=== PATIENT | male | born 1945 | race Caucasian/White ===

== ENCOUNTER 2023-05-15 09:10 | Outpatient (RCR) | payer SELFPAY | END 2023-05-15 23:59 | disposition home or self-care (01) | LOC: RST 09:10 | PROVIDERS: ATTENDING PHYSICIAN Family Medicine | DX: G20.A1 Parkinson's disease without dyskinesia, without mention of fluctuations (principal) ==

== ENCOUNTER 2023-08-28 09:29 | Outpatient (RCR) | payer SELFPAY | END 2023-08-28 23:59 | disposition home or self-care (01) | LOC: RST 09:29 | PROVIDERS: ATTENDING PHYSICIAN Family Medicine | DX: G20.A1 Parkinson's disease without dyskinesia, without mention of fluctuations (principal) ==

== ENCOUNTER 2023-10-30 11:45 | Outpatient (RCR) | payer SELFPAY | END 2023-10-30 23:59 | disposition home or self-care (01) | LOC: RST 11:45 | PROVIDERS: ATTENDING PHYSICIAN Family Medicine | DX: G20.C Parkinsonism, unspecified (principal); R47.1 Dysarthria and anarthria; R49.0 Dysphonia ==

== ENCOUNTER → 2023-11-26 13:27 | Outpatient (REF) | payer MEDICARE, SELFPAY | LOC: RAD 13:27 | PROVIDERS: ATTENDING PHYSICIAN Family Medicine | DX: M25.511 Pain in right shoulder (principal); S46.211A Strain of muscle, fascia and tendon of other parts of biceps, right arm, initial encounter | CPT/HCPCS: 73200 ==

== ENCOUNTER 2024-01-01 12:32 | Outpatient (RCR) | payer SELFPAY | END 2024-01-01 23:59 | disposition home or self-care (01) | LOC: RST 12:32 | PROVIDERS: ATTENDING PHYSICIAN Family Medicine | DX: G20.A1 Parkinson's disease without dyskinesia, without mention of fluctuations (principal); R47.1 Dysarthria and anarthria; R49.0 Dysphonia ==

== ENCOUNTER → 2024-02-08 11:32 | Outpatient (REF) | payer MEDICARE, SELFPAY ==
[2024-02-08 12:46] LABS: % Basophils 0.6 % (0-2); % Eosinophils 1.8 % (0-6); % Immature Granulocytes 0.2 % (0-0.5); % Lymphocytes 15.3 % (20.5-51.1); % Monocytes 7.8 % (1.7-9.3); % Neutrophils 74.3 % (42.2-75.2); Absolute Eosinophils 0.1 10^3/uL (0-0.7); Absolute Lymphocytes 0.8 10^3/uL (1.2-3.4); Absolute Monocytes 0.4 10^3/uL (0.1-0.6); Absolute Neutrophils 3.8 10^3/uL (1.4-6.5); Hematocrit 45.6 % (39.0-52.0); Hemoglobin 15.6 g/dL (13.0-18.0); Mean Corp Hgb Conc. 34.2 g/dL (33.0-37.0); Mean Corpuscular Hgb 33.9 pg (27.0-31.0); Mean Corpuscular Volume 99.1 fL (80.0-94.0); Mean Platelet Volume 11.1 fL (7.4-10.4); Nucleated Red Blood Cells % 0 % (-); Platelet Count 193 10^3/uL (130-400); White Blood Cell Count 5.1 10^3/uL (4.8-10.8)
[2024-02-08 12:59] LABS: ALT (SGPT) 25 U/L (0-50); AST (SGOT) 28 U/L (17-59); Albumin 4.6 g/dl (3.5-5.0); Alkaline Phosphatase 80 U/L (38-126); Blood Urea Nitrogen 22 mg/dl (9-20); Calcium 9.4 mg/dl (8.4-10.2); Carbon Dioxide 28 mmol/L (22-30); Chloride 104 mmol/L (98-107); Glucose 100 mg/dl (70-99); HDL Cholesterol 67 mg/dl; LDL Cholesterol, Calculated 96 mg/dl; Sodium 139 mmol/L (135-145); Total Bilirubin 0.7 mg/dl (0.2-1.3); Total Cholesterol 176 mg/dl (50-199); Total Protein 7.3 g/dl (6.3-8.2); Triglyceride 65 mg/dl (10-149); Very Low Density Lipoprotein 13 mg/dl (0-30); eGFR > 60.00
[2024-02-08 13:27] LABS: TSH 1.83 uIU/ml (0.47-4.68)
[2024-02-08 14:41] LABS: Glycohemoglobin (HgbA1c) 5.8 % (4.0-5.6)
== END ==
LOC: REG 11:32
PROVIDERS: ATTENDING PHYSICIAN Family Medicine
DX: E78.2 Mixed hyperlipidemia (principal); R73.01 Impaired fasting glucose; R53.83 Other fatigue; Z12.5 Encounter for screening for malignant neoplasm of prostate
CPT/HCPCS: 36415; 80053; 80061; 83036; 84443; 85025; G0103

== ENCOUNTER 2024-05-20 13:13 | Outpatient (RCR) | payer SELFPAY | END 2024-05-20 23:59 | disposition home or self-care (01) | LOC: RST 13:13 | PROVIDERS: ATTENDING PHYSICIAN Family Medicine | DX: G20.C Parkinsonism, unspecified (principal); R47.1 Dysarthria and anarthria; R49.0 Dysphonia ==

== ENCOUNTER 2024-08-04 02:03 | Emergency (ER) | payer MEDICARE, SELFPAY ==
[2024-08-04 02:05] VITALS: BP 176/74
--- NOTE | 2024-08-04 04:12 | ED.GENMED ---
History of Present Illness
<Alexandru Cartagena DO, Resident - Last Filed: 08/04/24 05:08>
General
Chief Complaint: Musculo-Skeletal Complaint
Source: patient, records and family
Time Seen by Provider: 08/04/24 03:49
History of Present Illness
History of Present Illness:
78-year-old male with past medical history of Parkinson's, ambulatory dysfunction and multiple recurrent falls presents for an unwitnessed mechanical fall prior to arrival. Patient reports he was bending over to pick something up and he lost his
balance subsequently falling onto his left elbow. Patient reports he does not take blood thinners, there is no loss of status, patient reports remembering it and he was able to get up on his own. As for now patient is complaining of left elbow
pain and swelling. Patient has full range of motion to flexion and extension.
Review of Systems
<Alexandru Cartagena DO, Resident - Last Filed: 08/04/24 05:08>
Review of Systems
Constitutional: Reports no symptoms
Respiratory: Reports no symptoms
Cardiac: Reports no symptoms
ABD/GI: Reports no symptoms
Musculoskeletal: Reports joint pain (Left elbow) and joint swelling (Left elbow)
Neurological: Reports no symptoms
Phy Exam
<Alexandru Cartagena DO, Resident - Last Filed: 08/04/24 05:08>
General Physical Exam
General Presentation: no apparent distress
General Skin: warm and dry
Cardiovascular Exam
Cardiovascular Exam: regular rate/rhythm, no edema and no murmur
Pulmonary Exam
Pulmonary Exam: lungs clear, no respiratory distress, no crackles and no wheezing
Gastrointestinal Exam
Gastrointestinal Exam: non tender, soft and non distended
Musculoskeletal Exam
Musculoskeletal Exam: full ROM (Patient has full range of motion to flexion extension of left elbow), joint swelling (Swelling present left elbow) and other (Patient has full range of motion of flexion extension of left elbow. Neurovascularly
intact, good pulses, reports previous cubital tunnel syndrome symptoms. There is a swelling present on the posterior aspect of the left olecranon process)
Course
<Alexandru Cartagena DO, Resident - Last Filed: 08/04/24 05:08>
Orders/Labs/Results
Orders:
Orders
08/04/24 02:07
CR Elbow - Left Min 3 Views Urgent
Reason For Exam: FALL
08/04/24 04:54
Sling Left-Treatment ONCE
Comment: Left elbow please
Ketorolac [Toradol] 15 mg IM NOW STA
Vital Signs
Initial and Last Documented VS:
Initial Vital Signs
Temp Pulse Resp Pulse Ox
97.8 F 68 20 100
08/04/24 02:04 08/04/24 02:04 08/04/24 02:04 08/04/24 02:04
Last Documented Vital Signs
Temp Pulse Resp Pulse Ox
97.8 F 68 20 100
08/04/24 02:04 08/04/24 02:04 08/04/24 02:04 08/04/24 02:04
<Fatou Flaherty DO - Last Filed: 08/04/24 05:07>
Orders/Labs/Results
Orders:
Orders
08/04/24 02:07
CR Elbow - Left Min 3 Views Urgent
Reason For Exam: FALL
08/04/24 04:54
Sling Left-Treatment ONCE
Comment: Left elbow please
Ketorolac [Toradol] 15 mg IM NOW STA
Vital Signs
Initial and Last Documented VS:
Initial Vital Signs
Temp Pulse Resp Pulse Ox
97.8 F 68 20 100
08/04/24 02:04 08/04/24 02:04 08/04/24 02:04 08/04/24 02:04
Last Documented Vital Signs
Temp Pulse Resp Pulse Ox
97.8 F 68 20 100
08/04/24 02:04 08/04/24 02:04 08/04/24 02:04 08/04/24 02:04
<Alexandru Cartagena DO, Resident - Last Filed: 08/04/24 05:08>
MDM/Problems Addressed
Differential Diagnosis Includes:
Hematoma, bursitis, elbow trauma
MDM/Problems Addressed:
78 male past ministry of Parkinson's with multiple recurrent falls presents for a mechanical unwitnessed fall where he was bending over to get something, subsequently lost his balance and fell backwards onto the left elbow. Patient reports no loss
of consciousness, reports remembering the event and was able to get up on his own and seek help. Patient reports he did not strike his head and does not take blood thinners.
Patient denies headache, no changes in vision, no abdominal pain, no chest pain, no shortness of breath does admit to elbow pain and elbow swelling of the left elbow
On exam patient is neurovascularly intact, good pulses and reports no numbness and tingling in the left elbow that is new�she does have cubital tunnel syndrome. There is swelling present on the posterior left olecranon process, could represent
bursitis or hematoma secondary to trauma. Patient reports tenderness to palpation diffusely, no point tenderness
Three-view elbow radiograph ordered
No reading radiologist overnight, interpreted by myself and Dr. Flaherty there are no obvious fractures of the left elbow, there is no obvious dislocation of the left elbow
Do not believe patient fractured or dislocated elbow as there is no obvious fracture on x-ray and patient has full range of motion to passive and active motion flexion extension
Likely injury is musculoskeletal in nature, potential for hematoma or bursitis
Single dose IM Toradol for pain
Left arm sling
Will give orthopedic consult information on discharge
Encourage follow-up with primary care physician
Encouraged use of [id number] Tylenol use on discharge
<Alexandru Cartagena DO, Resident - Last Filed: 08/04/24 05:08>
*Critical Care Note
Total Time (30-74mins, 75-104mins- exclusive of procedures): Not Applicable
ED Attending Note
<Alexandru Cartagena DO, Resident - Last Filed: 08/04/24 05:08>
-
Portions of this chart may have been created with voice recognition software.� Occasional wrong word or��sound alike� substitutions may have occurred due to the inherent limitations of voice recognition software.
<Fatou Flaherty DO - Last Filed: 08/04/24 05:07>
ED Attending Note
Patient seen and examined by attending physician: Yes
I performed the substantive portion of visit, reviewed & personally made and approve the management plan that is documented in note by myself or ROCÍO.: Yes
I performed a history and physical exam of patient and discussed management with resident, I reviewed resident's note and agree with documented findings and plan of care.: Yes
ED Attending Note:
78-year-old male with history of Parkinson's disease presenting to the emergency department with left elbow pain after a fall. Patient reports that his Parkinson's has been worsening, causing issues with balance. Prior to arrival had a mechanical
fall, landed on his left elbow with subsequent pain. Denies head injury or loss of consciousness. Denies prodromal symptoms such as dizziness or lightheadedness. He was able to get up after the fall. He put ice on the elbow, noticed swelling at
the olecranon region. Reports that he is able to range the arm without difficulty. Denies additional acute medical complaints.
Vital signs are normal. On exam patient is resting comfortably, no acute distress or discomfort. No signs of head trauma, no tenderness to the cervical spine. No tenderness of the chest/abdomen region. On evaluation of the left upper extremity,
there is swelling at the olecranon without erythema. Range of motion is grossly intact. Generalized tenderness. Distal sensation and pulses intact. X-ray obtained, no obvious fracture, however soft tissue swelling over the olecranon. Suspected
bursitis versus hematoma. at bedside has pictures of olecranon region prior to arrival, swelling has since improved after ice. At this time suspect minor musculoskeletal injury. Will place in sling. Toradol administered for pain. Otherwise
feel stable for discharge with continued outpatient supportive therapy. Advised range of motion exercises. Return precautions discussed and patient verbalized understanding
Discharge Plan
Departure
Condition: Fair
Discharge Problem:
Fall, Parkinson's disease
Instructions: Preventing falls in adults, How to Use a Shoulder Sling, Preventing falls - ED discharge instructions
Prescriptions:
No Action
entacapone 200 MG tablet
200 mg PO TID
B12
5,000 mcg PO DAILY
amantadine HCl 100 mg Tablet
100 mg PO BID
ascorbic acid (vitamin C) [Vitamin C] 1,000 mg Tablet
1,000 mg PO TID
carbidopa-levodopa 25-250 mg Tablet
1 tab PO DAILY
carbidopa-levodopa 25-250 mg Tablet
1.5 tab PO QID
meloxicam 15 mg Tablet
15 mg PO DAILY
famotidine 40 mg Tablet
40 mg PO DAILY
niacin 500 mg Tablet
500 mg PO DAILY
zinc 50 mg Tablet
50 mg PO DAILY
polyethylene glycol 3350 [Miralax] 17 gram/dose Powder
17 g PO DAILY
docusate sodium 250 mg Capsule
250 mg PO BID
tadalafil 5 mg Tablet
5 mg PO DAILY
cholecalciferol (vitamin D3) [Vitamin D3] 50 mcg (2,000 unit) Capsule
50 mcg PO DAILY
coQ10 (ubiquinol) 200 mg Capsule
400 mg PO DAILY
melatonin 10 mg Tablet
20 mg PO HS
B6 Vitamin
100 mg PO DAILY
Flax Seed Powder
1 dose PO DAILY
Tony Fish Oil
300 mg PO DAILY
Tony Vitamin
1 tab PO DAILY
glucosamine [id number]
2 tab PO DAILY
methylphenidate HCl
50 mg PO DAILY
psyllium
1 dose PO DAILY
Referrals:
Enrike Morales MD [Family Provider] - Call in 1-3 days for appt
Andrea Sampson MD [Active] - Call in 1-3 days for appt
Activity Restrictions/Additional Instructions:
Please schedule a follow up with your primary care physician, call in 1 to 3 days for an appointment
Referral for [facility] orthopedics is attached, we do not believe you need to schedule an appointment however if the radiology read comes back as a fracture, information is there for your reference.
Please use arm sling, instructions are provided on proper use
Please use [id number] Tylenol as needed for pain. Do not take more than 4000 mg Tylenol in 24 hours
Please return to the emergency department if you notice any numbness and tingling in the left arm that is new. If the arm becomes cold, if you are unable to move the left arm or with any concerns
Interventions
Interventions:
*Risk Screen - Suicide Last Done: 08/04/24 02:04
*General Assessment Last Done: 08/04/24 04:11
*Neglect/Abuse Screening Last Done: 08/04/24 02:04
ED- Fall Risk Assessment Last Done: 08/04/24 04:11
*ED COVID-19 Vaccine History Last Done: 08/04/24 04:11
ED-Musculoskeletal Assessment Last Done: 08/04/24 04:11
Discharge Date and Time
Print Language: OCCITAN
[2024-08-04] MEDS: TORADOL 15 MG IM (05:05)
[2024-08-04 05:18] VITALS: BP 165/83
== END 2024-08-04 05:30 | disposition home or self-care (01) ==
LOC: EMR 02:03
PROVIDERS: EMERGENCY PHYSICIAN Student in an Organized Health Care Education/Training Program; FAMILY PHYSICIAN Family Medicine
DX: S59.902A Unspecified injury of left elbow, initial encounter (principal); W19.XXXA Unspecified fall, initial encounter; Z91.81 History of falling; G20.A1 Parkinson's disease without dyskinesia, without mention of fluctuations; R29.6 Repeated falls
CPT/HCPCS: 96372; 99284; 73080

== ENCOUNTER → 2024-08-15 10:44 | Outpatient (REF) | payer MEDICARE, SELFPAY ==
[2024-08-15 13:28] LABS: % Basophils 0.4 % (0-2); % Eosinophils 1.2 % (0-6); % Immature Granulocytes 0.4 % (0-0.5); % Lymphocytes 9.8 % (20.5-51.1); % Monocytes 8.2 % (1.7-9.3); Absolute Eosinophils 0.1 10^3/uL (0-0.7); Absolute Lymphocytes 0.8 10^3/uL (1.2-3.4); Absolute Monocytes 0.7 10^3/uL (0.1-0.6); Absolute Neutrophils 6.5 10^3/uL (1.4-6.5); Hematocrit 43.4 % (39.0-52.0); Hemoglobin 14.5 g/dL (13.0-18.0); Mean Corp Hgb Conc. 33.4 g/dL (33.0-37.0); Mean Corpuscular Hgb 33.5 pg (27.0-31.0); Mean Corpuscular Volume 100.2 fL (80.0-94.0); Mean Platelet Volume 11.6 fL (7.4-10.4); Nucleated Red Blood Cells % 0 % (-); Platelet Count 219 10^3/uL (130-400); Red Blood Cell Count 4.33 10^6/uL (4.70-6.10); Red Cell Dist. Width 12.8 % (11.5-14.5); White Blood Cell Count 8.1 10^3/uL (4.8-10.8)
[2024-08-15 14:05] LABS: ALT (SGPT) < 10 U/L (0-50); AST (SGOT) 43 U/L (17-59); Albumin 4.4 g/dl (3.5-5.0); Alkaline Phosphatase 81 U/L (38-126); Blood Urea Nitrogen 19 mg/dl (9-20); Calcium 9.2 mg/dl (8.4-10.2); Carbon Dioxide 29 mmol/L (22-30); Chloride 101 mmol/L (98-107); Glucose 98 mg/dl (70-99); HDL Cholesterol 71 mg/dl; LDL Cholesterol, Calculated 91 mg/dl; Potassium 5.1 mmol/L (3.5-5.1); Sodium 138 mmol/L (135-145); Total Bilirubin 0.7 mg/dl (0.2-1.3); Total Cholesterol 175 mg/dl (50-199); Total Protein 7.4 g/dl (6.3-8.2); Triglyceride 66 mg/dl (10-149); Very Low Density Lipoprotein 13 mg/dl (0-30); eGFR > 60.00
[2024-08-15 15:12] LABS: Glycohemoglobin (HgbA1c) 5.7 % (4.0-5.6)
== END ==
LOC: REG 10:44
PROVIDERS: ATTENDING PHYSICIAN Family Medicine
DX: E78.2 Mixed hyperlipidemia (principal); R73.01 Impaired fasting glucose
CPT/HCPCS: 36415; 80053; 80061; 83036; 85025

== ENCOUNTER 2024-12-02 09:00 | Outpatient (RCR) | payer SELFPAY | END 2024-12-02 23:59 | disposition home or self-care (01) | LOC: RST 09:00 | PROVIDERS: ATTENDING PHYSICIAN Family Medicine | DX: G20.A1 Parkinson's disease without dyskinesia, without mention of fluctuations (principal) ==

== ENCOUNTER 2025-02-03 12:29 | Outpatient (RCR) | payer SELFPAY | END 2025-02-03 23:59 | disposition home or self-care (01) | LOC: RST 12:29 | PROVIDERS: ATTENDING PHYSICIAN Family Medicine | DX: G20.A1 Parkinson's disease without dyskinesia, without mention of fluctuations (principal) ==

== ENCOUNTER 2025-04-21 15:43 | Outpatient (RCR) | payer SELFPAY | END 2025-04-21 23:59 | disposition home or self-care (01) | LOC: RST 15:43 | PROVIDERS: ATTENDING PHYSICIAN Family Medicine | DX: G20.A1 Parkinson's disease without dyskinesia, without mention of fluctuations (principal) ==

== ENCOUNTER 2025-06-02 13:49 | Outpatient (RCR) | payer SELFPAY | END 2025-06-02 23:59 | disposition home or self-care (01) | LOC: RST 13:49 | PROVIDERS: ATTENDING PHYSICIAN Family Medicine | DX: G20.A1 Parkinson's disease without dyskinesia, without mention of fluctuations (principal); R47.1 Dysarthria and anarthria; R49.0 Dysphonia ==

== ENCOUNTER 2025-06-07 06:38 | Day surgery (SDC) | payer MEDICARE, SELFPAY | END 2025-06-07 14:10 | disposition home or self-care (01) | LOC: GI 06:38 | PROVIDERS: ATTENDING PHYSICIAN Student in an Organized Health Care Education/Training Program; FAMILY PHYSICIAN Family Medicine | DX: Z12.11 Encounter for screening for malignant neoplasm of colon (principal); K57.30 Diverticulosis of large intestine without perforation or abscess without bleeding; D12.5 Benign neoplasm of sigmoid colon; D12.0 Benign neoplasm of cecum; D12.3 Benign neoplasm of transverse colon; K63.5 Polyp of colon; K62.1 Rectal polyp; Z86.0100 Personal history of colon polyps, unspecified | CPT/HCPCS: 45385; 45380; 88305 ==